=== PATIENT | male | born 1955 | race Caucasian/White ===

== ENCOUNTER → 2018-08-03 | Outpatient (CLI) | payer OTHER | LOC: M PAIN 10:00 | DX: M12.9 Arthropathy, unspecified (principal); M54.5 Low back pain; G89.29 Other chronic pain; I10 Essential (primary) hypertension; E78.5 Hyperlipidemia, unspecified; Z79.82 Long term (current) use of aspirin; Z79.899 Other long term (current) drug therapy; Z96.651 Presence of right artificial knee joint; Z86.69 Personal history of other diseases of the nervous system and sense organs | CPT/HCPCS: G0463 ==

== ENCOUNTER → 2020-07-14 | Outpatient (CLI) | payer OTHER ==
[~2020-07-14] MED LIST: BISO5TAB14 PO; CYMB1CAP4 PO; LEVO112T2 PO; METF-881 PO; OMEP40CA97 PO; PRAV20TA2 PO
== END ==
LOC: M LABSMTC 11:51
PROVIDERS: ATTEND Anesthesiology
DX: Z01.812 Encounter for preprocedural laboratory examination (principal); Z20.828 Contact with and (suspected) exposure to other viral communicable diseases
CPT/HCPCS: C9803; U0002

== ENCOUNTER 2020-07-17 11:10 | Day surgery (SDC) | payer OTHER ==
[~2020-07-17] VITALS: Ht 177.8 cm; Wt 95.3 kg
[~2020-07-17 11:10] MED LIST changes: +NS 1,000 ML IV ONE
[2020-07-17] MEDS ORDERED: fentaNYL 100 MCG/2 ML INJECTION (J3010) As Ordered ONE (14:12)
[2020-07-17] MEDS ORDERED: propofoL 200 MG/20 ML VIAL As Ordered ONE ×2 (14:21→14:50)
[2020-07-17] MEDS ORDERED: SIMETHICONE 40MG/0.6ML DROPS 30ML As Ordered ONE (14:25)
--- NOTE | 2020-07-17 15:04 | ROOR ---
Patient Name: Rafael Lofton Procedure Date: 07/17/2020 2:14 PM Date of : 1955 Age: 64 Room: [facility] Gender: Male Note Status: Finalized Procedure: Upper GI endoscopy Indications: Dysphagia, Heartburn, Diarrhea Providers: Kewsi Mello MD Referring MD: Buzz Gil DO Requesting Provider: Medicines: Propofol per Anesthesia, Monitored Anesthesia Care Complications: No immediate complications. Procedure: Pre-Anesthesia Assessment: - Prior to the procedure, a History and Physical was performed, and patient medications and allergies were reviewed. The patient is competent. The risks and benefits of the procedure and the sedation options and risks were discussed with the patient. All questions were answered and informed consent was obtained. Patient identification and proposed procedure were verified by the physician, the nurse and the anesthesiologist in the procedure room. Mental Status Examination: alert and oriented. Airway Examination: normal oropharyngeal airway and neck mobility. Respiratory Examination: clear to auscultation. CV Examination: normal. Prophylactic Antibiotics: The patient does not require prophylactic antibiotics. Prior Anticoagulants: The patient has taken no previous anticoagulant or antiplatelet agents. ASA Grade Assessment: II - A patient with mild systemic disease. After reviewing the risks and benefits, the patient was deemed in satisfactory condition to undergo the procedure. The anesthesia plan was to use monitored anesthesia care (MAC). Immediately prior to administration of medications, the patient was re-assessed for adequacy to receive sedatives. The heart rate, respiratory rate, oxygen saturations, blood pressure, adequacy of pulmonary ventilation, and response to care were monitored throughout the procedure. The physical status of the patient was re-assessed after the procedure. The Endoscope was introduced through the mouth, and advanced to the second part of duodenum. The upper GI endoscopy was accomplished without difficulty. The patient tolerated the procedure well. Findings: Diffuse, white plaques were found in the middle third of the esophagus and in the lower third of the esophagus. Biopsies were taken with a cold forceps for histology. Biopsies were obtained from the proximal and distal esophagus with cold forceps for histology of suspected eosinophilic esophagitis. Estimated blood loss was minimal. Verification of patient identification for the specimen was done by the physician and nurse using the patient's name, date and medical record number. Estimated blood loss was minimal. The Z-line was regular and was found 40 cm from the incisors. Scattered mild inflammation characterized by erosions, friability and granularity was found in the gastric antrum. Biopsies were taken with a cold forceps for Helicobacter pylori testing. Decreased folds were found in the second portion of the duodenum. Biopsies for histology were taken with a cold forceps for evaluation of celiac disease. Impression: - Esophageal plaques were found, suspicious for candidiasis. Biopsied. - Z-line regular, 40 cm from the incisors. - Gastritis. Biopsied. - Duodenal mucosal changes seen, suspicious for celiac disease. Biopsied. Recommendation: - Patient has a contact number available for emergencies. The signs and symptoms of potential delayed complications were discussed with the patient. Return to normal activities tomorrow. Written discharge instructions were provided to the patient. - High fiber diet. - Continue present medications. - Await pathology results. - Follow an antireflux regimen. - Telephone GI clinic for pathology results in 2 weeks. - Return to primary care physician. Kwesi Mello MD Kwesi Mello MD 07/17/2020 3:03:21 PM Electronically signed by Kwesi Mello MD Number of Addenda: 0 Note Initiated On: 07/17/2020 2:14 PM Estimated Blood Loss: Estimated blood loss was minimal.
[2020-07-17 15:24] VITALS: BP 141/71
--- NOTE | 2020-07-17 15:48 | ROOR ---
Patient Name: Rafael Lofton Procedure Date: 07/17/2020 2:15 PM Date of : 1955 Age: 64 Room: [facility] Gender: Male Note Status: Finalized Procedure: Colonoscopy Indications: Change in bowel habits, Chronic diarrhea Providers: Kwesi Mello MD Referring MD: Buzz Gil DO Requesting Provider: Medicines: Monitored Anesthesia Care Complications: No immediate complications. Procedure: Pre-Anesthesia Assessment: - Prior to the procedure, a History and Physical was performed, and patient medications and allergies were reviewed. The patient is competent. The risks and benefits of the procedure and the sedation options and risks were discussed with the patient. All questions were answered and informed consent was obtained. Patient identification and proposed procedure were verified by the physician, the nurse and the anesthesiologist in the procedure room. Mental Status Examination: alert and oriented. Airway Examination: normal oropharyngeal airway and neck mobility. Respiratory Examination: clear to auscultation. CV Examination: normal. Prophylactic Antibiotics: The patient does not require prophylactic antibiotics. Prior Anticoagulants: The patient has taken no previous anticoagulant or antiplatelet agents. ASA Grade Assessment: II - A patient with mild systemic disease. After reviewing the risks and benefits, the patient was deemed in satisfactory condition to undergo the procedure. The anesthesia plan was to use monitored anesthesia care (MAC). Immediately prior to administration of medications, the patient was re-assessed for adequacy to receive sedatives. The heart rate, respiratory rate, oxygen saturations, blood pressure, adequacy of pulmonary ventilation, and response to care were monitored throughout the procedure. The physical status of the patient was re-assessed after the procedure. The Colonoscope was introduced through the anus and advanced to the terminal ileum, with identification of the appendiceal orifice and IC valve. The colonoscopy was performed without difficulty. The patient tolerated the procedure well. The quality of the bowel preparation was fair except the ascending colon was poor. The ileocecal valve, appendiceal orifice, and rectum were photographed. Scope insertion time was 3 minutes. Scope withdrawal time was 9 minutes. The total duration of the procedure was 14 minutes. Findings: The perianal and digital rectal examinations were normal. The terminal ileum appeared normal. A large amount of semi-liquid semi-solid stool was found from transverse colon to cecum, interfering with visualization. Lavage of the area was performed using a large amount of sterile water, resulting in incomplete clearance with fair visualization. Five sessile polyps were found in the transverse colon and ascending colon. The polyps were 5 to 6 mm in size. These polyps were removed with a cold biopsy forceps. Resection and retrieval were complete. Verification of patient identification for the specimen was done by the physician and nurse using the patient's name, date and medical record number. Estimated blood loss was minimal. Normal mucosa was found in the entire colon. Biopsies for histology were taken with a cold forceps from the right colon, left colon and rectosigmoid colon for evaluation of microscopic colitis. Multiple small and large-mouthed diverticula were found from sigmoid to descending colon. There was no evidence of diverticular bleeding. Non-bleeding external and internal hemorrhoids were found during retroflexion. The hemorrhoids were medium-sized. Impression: - The examined portion of the ileum was normal. - Stool from transverse colon to cecum. - Five 5 to 6 mm polyps in the transverse colon and in the ascending colon, removed with a cold biopsy forceps. Resected and retrieved. - Normal mucosa in the entire examined colon. Biopsied. - Moderate diverticulosis from sigmoid to descending colon. There was no evidence of diverticular bleeding. - Non-bleeding external and internal hemorrhoids. Recommendation: - Patient has a contact number available for emergencies. The signs and symptoms of potential delayed complications were discussed with the patient. Return to normal activities tomorrow. Written discharge instructions were provided to the patient. - High fiber diet. - Continue present medications. - Use original regular Metamucil one teaspoon PO daily. - Await pathology results. - Repeat colonoscopy in 1 year because the bowel preparation was suboptimal and for surveillance of multiple polyps. - Telephone GI clinic for pathology results in 2 weeks. - Return to primary care physician. Kwesi Mello MD Kwesi Mello MD 07/17/2020 3:47:58 PM Electronically signed by Kwesi Mello MD Number of Addenda: 0 Note Initiated On: 07/17/2020 2:15 PM Estimated Blood Loss: Estimated blood loss was minimal.
== END 2020-07-17 15:40 | disposition home or self-care (01) ==
LOC: M OPP 11:10
PROVIDERS: ATTEND Internal Medicine Gastroenterology
DX: K63.5 Polyp of colon (principal); K64.8 Other hemorrhoids; K52.9 Noninfective gastroenteritis and colitis, unspecified; K57.30 Diverticulosis of large intestine without perforation or abscess without bleeding; R19.4 Change in bowel habit; K22.9 Disease of esophagus, unspecified; K29.70 Gastritis, unspecified, without bleeding; K31.89 Other diseases of stomach and duodenum; R13.10 Dysphagia, unspecified; E11.9 Type 2 diabetes mellitus without complications; I10 Essential (primary) hypertension; Z79.84 Long term (current) use of oral hypoglycemic drugs; Z79.899 Other long term (current) drug therapy
CPT/HCPCS: 43239; 45380; 88305; 88313; J3010

== ENCOUNTER → 2021-08-14 | Outpatient (CLI) | payer OTHER ==
[~2021-08-14] MED LIST changes: -NS 1,000 ML IV ONE; +OMEP40CA4 PO; -OMEP40CA97 PO
--- NOTE | 2021-08-14 17:34 | ECHO ---
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 2D MEASUREMENTS: Aortic root 3.5 cm Left atrium 4.6 cm Ventricular septum 1.42 cm Posterior wall 1.42 cm Left ventricle diastole 4.0 cm Aortic annulus 2.6 cm LVOT 2.12 cm Inferior vena cava 2.6 cm DOPPLER MEASUREMENTS: Aortic valve area 1.04 cm2 (continuity equation, VTI) Dimensionless index 0.30 Peak aortic velocity 269 cm/s Peak aortic valve gradient 29 mmHg Mean aortic valve gradient 17 mmHg Aortic valve VTI 51.1 cm LVOT velocity 70.7 cm/s LVOT VTI 15.1 cm No mitral regurgitation. No mitral stenosis. Mitral E velocity 55.8 cm/s Mitral A velocity 87.9 cm/s Mitral deceleration time 130 msec Mild tricuspid regurgitation Estimated right ventricular systolic pressure 27-32 mmHg Estimated right atrial pressure 5-10 mmHg Very mild pulmonic regurgitation. Pulmonary artery systolic pressure 22 mmHg MITRAL ANNULAR TISSUE DOPPLER E prime septal 3.5 cm/s E prime lateral 6.6 cm/s DESCRIPTION: Rhythm was sinus with frequent PVCs. This was a moderately technically difficult echocardiogram. No pericardial effusion. This was a 2D, M-mode, color flow Doppler, and pulsed wave Doppler examination, including mitral annular tissue Doppler. CONCLUSIONS: 1. Severe focal thickening and focal calcific deposits of a 3-cuspid aortic valve. Moderate reduction in aortic cusp mobility. Moderate aortic valve stenosis as judged by aortic valve area, calculation, and dimensionless index. No aortic regurgitation. 2. Mild concentric left ventricular hypertrophy. Normal regional LV wall motion and wall thickening. Normal LV systolic function. LVEF 60% by visual assessment. Grade 1 LV diastolic dysfunction (impaired relaxation filling pattern). 3. Mild left atrial dilatation. 4. Mild mitral annular calcification. No mitral regurgitation. 5. Normal right ventricle size and systolic function. Normal pulmonary artery systolic pressure and estimated right ventricle systolic pressure. Right atrium appeared normal in size. 6. Moderately technically difficult echocardiogram. ADDITIONAL COMMENTS AND RECOMMENDATIONS: Recommend a followup echocardiogram Doppler in 1 year.
== END ==
LOC: M CARPUL 09:28
PROVIDERS: ATTEND Physician Assistant
DX: I35.2 Nonrheumatic aortic (valve) stenosis with insufficiency (principal); I51.7 Cardiomegaly